=== PATIENT | female | born 1955 | race Caucasian/White ===

== ENCOUNTER → 2017-03-14 | Outpatient (CLI) | payer OTHER ==
[~2017-03-14] MED LIST: AMITRIPTYLINE25 MG PO; BACTRIM DS 8001 TA1 PO; FLEXERIL10 MG PO; PYRIDIUM200 MG PO; WELLBUTRIN SR150 MG PO
== END | disposition home or self-care (01) ==
LOC: LAB 10:57 → MRI 10:57
PROVIDERS: Radiology Diagnostic Radiology
DX: G43.019 Migraine without aura, intractable, without status migrainosus (principal)

== ENCOUNTER → 2017-03-20 | Outpatient (CLI) | payer OTHER ==
[2017-03-20 09:53] LABS: BASO % 0.6 % (0.0-1.0); EOS # 0.2 10*3/uL (0.0-0.4); EOS % 4.4 % (1.0-4.0); HEMOGLOBIN 14.5 g/dl (12.0-16.0); LYMPH # 1.4 10*3/uL (1.3-4.4); LYMPH % 28.5 % (27.0-41.0); MEAN CELL VOLUME 91.7 fl (81.0-99.0); MEAN CORPUSCULAR HGB 31.7 pg (27.0-31.0); MEAN CORPUSCULAR HGB CONC 34.5 g/dl (33.0-37.0); MEAN PLATELET VOLUME 9.6 fl (9.6-12.3); MONO # 0.3 10*3/uL (0.1-1.0); MONO % 7.2 % (3.0-9.0); NEUT # 2.8 10*3/uL (2.3-7.9); NEUT % 58.7 % (47.0-73.0); PLATELET COUNT AUTOMATED 213 10*3/uL (130-400); RED BLOOD COUNT 4.58 10*6/uL (4.10-5.10); RED CELL DISTRI WIDTH 13.3 % (0-14.5); WHITE BLOOD COUNT 4.7 10*3/uL (4.8-10.8)
[2017-03-20 10:15] LABS: ALBUMIN 3.6 gm/dl (3.1-4.5); ALKALINE PHOSPHATASE 63 U/L (45-117); BUN 7 mg/dl (7-24); CHLORIDE 102 mmol/L (98-107); CHOLESTEROL 250 mg/dL (<200); HDL CHOLESTEROL 98 mg/dl (40-60); LDL CHOLESTEROL 133 mg/dL (9-159); SGOT/AST 19 IU/L (3-35); SGPT/ALT 25 U/L (12-78); SODIUM 136 mmol/L (136-145); TRIGLYCERIDES 97 mg/dl (<150); VLDL CHOLESTEROL 19 mg/dL (6-40)
[2017-03-21 07:07] LABS: TOTAL PROTEIN, SERUM 6.5 g/dL (6.0-8.5)
[2017-03-21 15:08] LABS: A/G RATIO 1.3 (0.7-1.7); ALBUMIN 3.7 g/dL (2.9-4.4); ALPHA-1-GLOBULIN 0.3 g/dL (0.0-0.4); ALPHA-2-GLOBULIN 0.8 g/dL (0.4-1.0); BETA GLOBULIN 1.1 g/dL (0.7-1.3); GAMMA GLOBULIN 0.6 g/dL (0.4-1.8); GLOBULIN, TOTAL 2.8 g/dL (2.2-3.9); M-SPIKE Not Observed g/dL (Not Observed)
[2017-03-22 15:08] LABS: METHYLMALONIC ACID 706961 134 nmol/L (0-378)
== END | disposition home or self-care (01) ==
LOC: LAB 09:25
PROVIDERS: Nurse Practitioner Family
DX: E78.4 Other hyperlipidemia (principal); F32.9 Major depressive disorder, single episode, unspecified; G62.9 Polyneuropathy, unspecified

== ENCOUNTER → 2017-08-01 | Day surgery (SDC) | payer OTHER ==
[~2017-08-01] VITALS: Ht 167.6 cm; Wt 74.8 kg
[~2017-08-01] MED LIST changes: +BUPROPION HCL300 MG PO; +CYCLOBENZAPRINE10 MG PO; +CYMBALTA30 MG PO; +ESTRADIOL0.5 MG PO; +OMEPRAZOLE MAGN20 MG PO; +ZYRTEC10 MG PO
--- NOTE | ~2017-08-01 | O ---
[facility], [place] OPERATIVE NOTE NAME: RAISA SANDOVAL UNIT #: [id number] ROOM: DOCTOR: EDDIE DAVISON MD BIRTHDATE: [birth year] DOS: 08/01/2017 GASTROENDOSCOPIC REPORT CHIEF COMPLAINT: A 61-year-old patient who presented with chief complaint concern about colonic screening. ALLERGIES: No medication. FAMILY HISTORY: Ulcerative colitis in father. PAST SURGICAL HISTORY: Appendectomy, hysterectomy, tonsillectomy, TMJ, and cervical spine. PAST MEDICAL HISTORY: Depression, temporomandibular joint arthritis, gastritis. SOCIAL HISTORY: Social alcohol consumer. PROCEDURE: Today's procedure part of investigation is colonoscopy. PREMEDICATION: Versed and Diprivan. SCOPE: Olympus folding colonoscope 10L video. REPORT: After putting the patient in left lateral position and application of lubricant to the scope, the scope was introduced. Thereafter, under direct visualization, advanced through the length of colon with some difficulty. Difficulty was severe angulation and tortuosity of colon, Specifically that she has had total abdominal hysterectomy and adhesions which is fixed hepatic flexure. However, this overcame with appropriate maneuver times taking and base of cecum explored, appendiceal orifice identified. Scope was gradually withdrawn from ascending, transverse, descending colon. The patient extubated, tolerated procedure well. IMPRESSION: Rare diverticulosis and tortuosity of the colon secondary to adhesions and fixation. PLAN AND DISCUSSION: High fiber diet. ACTIVITY: Ad domenico. FOLLOWUP: Routinely with you in office, p.r.n. with us in [facility]. [place], [place] OPERATIVE NOTE NAME: RAISA SANDOVAL UNIT #: [id number] ROOM: DOCTOR: EDDIE DAVISON MD BIRTHDATE: [birth year] EDDIE DAVISON MD CM:OPRECORD:OPERATIVE NOTE [id number] EDDIE DAVISON MD 08/01/17 0921 interface
[2017-08-01 07:20] VITALS: BP 119/71
[2017-08-01 08:55] VITALS: BP 124/78
[2017-08-01 09:06] VITALS: BP 132/69
[2017-08-01 09:21] VITALS: BP 138/66
== END ==
LOC: SDC 07-27 08:45
DX: Z12.11 Encounter for screening for malignant neoplasm of colon (principal); K57.30 Diverticulosis of large intestine without perforation or abscess without bleeding; Z84.89 Family history of other specified conditions; Z90.49 Acquired absence of other specified parts of digestive tract; Z90.710 Acquired absence of both cervix and uterus; F32.9 Major depressive disorder, single episode, unspecified; M19.90 Unspecified osteoarthritis, unspecified site; K63.89 Other specified diseases of intestine; K21.9 Gastro-esophageal reflux disease without esophagitis; Z87.891 Personal history of nicotine dependence; Z79.899 Other long term (current) drug therapy; Z98.890 Other specified postprocedural states

== ENCOUNTER → 2018-11-18 | Outpatient (CLI) | payer OTHER ==
[2018-11-18 12:01] LABS: BASO # 0.1 10*3/uL (0.0-0.1); BASO % 0.9 % (0.0-1.0); EOS # 0.6 10*3/uL (0.0-0.4); EOS % 8.4 % (1.0-4.0); HEMATOCRIT 43.2 % (37.0-47.0); HEMOGLOBIN 14.1 g/dl (12.0-16.0); LYMPH # 1.3 10*3/uL (1.3-4.4); LYMPH % 19.4 % (27.0-41.0); MEAN CELL VOLUME 88.9 fl (81.0-99.0); MEAN CORPUSCULAR HGB CONC 32.6 g/dl (33.0-37.0); MEAN PLATELET VOLUME 9.8 fl (9.6-12.3); MONO # 0.5 10*3/uL (0.1-1.0); MONO % 7.8 % (3.0-9.0); NEUT # 4.2 10*3/uL (2.3-7.9); PLATELET COUNT AUTOMATED 250 10*3/uL (130-400); RED BLOOD COUNT 4.86 10*6/uL (4.10-5.10); RED CELL DISTRI WIDTH 14.3 % (0-14.5); WHITE BLOOD COUNT 6.6 10*3/uL (4.8-10.8)
[2018-11-18 12:34] LABS: ALBUMIN 3.9 gm/dl (3.1-4.5); BUN 11 mg/dl (7-24); CHLORIDE 101 mmol/L (98-107); POTASSIUM 4.2 mmol/L (3.5-5.1); SGPT/ALT 36 U/L (12-78); SODIUM 136 mmol/L (136-145)
[2018-11-18 12:45] LABS: ALKALINE PHOSPHATASE 81 U/L (45-117); CREATININE 0.78 mg/dL (0.55-1.02); SGOT/AST 22 IU/L (3-35); TOTAL PROTEIN 7.6 gm/dL (6.4-8.2)
[2018-11-19 06:16] LABS: TOTAL PROTEIN, SERUM 6.9 g/dL (6.0-8.5)
[2018-11-19 14:07] LABS: A/G RATIO 1.3 (0.7-1.7); ALBUMIN 3.9 g/dL (2.9-4.4); ALPHA-1-GLOBULIN 0.2 g/dL (0.0-0.4); ALPHA-2-GLOBULIN 0.9 g/dL (0.4-1.0); BETA GLOBULIN 1.3 g/dL (0.7-1.3); GAMMA GLOBULIN 0.6 g/dL (0.4-1.8); M-SPIKE Not Observed g/dL (Not Observed)
[2018-11-21 00:07] LABS: METHYLMALONIC ACID 166 nmol/L (0-378)
== END | disposition home or self-care (01) ==
LOC: LAB 11:07
PROVIDERS: Physician Assistant
DX: G62.9 Polyneuropathy, unspecified (principal)

== ENCOUNTER → 2023-03-20 | Outpatient (CLI) | payer MEDICARE | END | disposition home or self-care (01) | LOC: RAD 10:52 | PROVIDERS: ATTEND Chiropractor | DX: M51.36 Other intervertebral disc degeneration, lumbar region (principal); M48.061 Spinal stenosis, lumbar region without neurogenic claudication ==

== ENCOUNTER 2024-02-20 14:08 | Inpatient (IN) | payer MEDICARE ==
[~2024-02-20] VITALS: Ht 165.1 cm; Wt 80.0 kg
[2024-02-20 14:34] VITALS: BP 138/85
[2024-02-20] MEDS ORDERED: Ondansetron Hydrochloride 4 MG/2 ML VIAL IV ONE (14:35)
[2024-02-20] MEDS ORDERED: Ketorolac Tromethamine 30 MG/ML VIAL IV ONE (14:35)
[2024-02-20] MEDS ORDERED: SODIUM CHLORIDE 0.9% 1,000 ML IV ONE ×2 (14:35→18:20)
[2024-02-20] MEDS ORDERED: IOHEXOL 300 MG/ML 100 ML VIAL IV ONE (14:50)
[2024-02-20 14:51] LABS: BASO # 0.1 10*3/uL (0.0-0.1); BASO % 0.4 % (0.0-1.0); EOS # 0.3 10*3/uL (0.0-0.4); EOS % 1.9 % (1.0-4.0); LYMPH # 1.5 10*3/uL (1.3-4.4); MEAN CELL VOLUME 75.7 fl (81.0-99.0); MEAN CORPUSCULAR HGB 24.1 pg (27.0-31.0); MEAN CORPUSCULAR HGB CONC 31.8 g/dl (33.0-37.0); MEAN PLATELET VOLUME 9.5 fl (9.6-12.3); MONO % 6.8 % (3.0-9.0); NEUT # 12.1 10*3/uL (2.3-7.9); NEUT % 80.4 % (47.0-73.0); PLATELET COUNT AUTOMATED 282 10*3/uL (130-400); RED BLOOD COUNT 5.02 10*6/uL (4.10-5.10); RED CELL DISTRI WIDTH 16.1 % (0-14.5); WHITE BLOOD COUNT 15.1 10*3/uL (4.8-10.8)
[2024-02-20 15:04] LABS: BILIRUBIN Negative (Negative); BLOOD Negative (Negative); CLARITY Clear (Clear); COLOR Yellow (Yellow); GLUCOSE Negative (Negative); KETONE Trace (Negative); LEUKO ESTERASE Negative (Negative); NITRITE Negative (Negative); PH 6.5 (4.5-8.0)
[2024-02-20 15:11] LABS: ALKALINE PHOSPHATASE 105 U/L (46-116); BUN 10 mg/dl (9-23); CHLORIDE 101 mmol/L (98-107); LIPASE 32 U/L (12-53); POTASSIUM 3.5 mmol/L (3.4-5.1); SGPT/ALT 15 U/L (5-49); TOTAL PROTEIN 6.8 gm/dL (6.0-8.0)
[2024-02-20 15:20] LABS: MUCOUS TRACE; WBC 0-2 wbc/hpf (0-5)
[2024-02-20] MEDS ORDERED: Ondansetron4 MG PO (16:47)
[2024-02-20] MEDS ORDERED: HYDROCODONE-AC1 EAC1 PO (16:47)
[2024-02-20] MEDS ORDERED: Piperacillin Sodium/Tazobact 50 ML IV ONE (17:15)
[2024-02-20] MEDS ORDERED: ATORVASTATIN CA20 M1 PO (17:48)
[2024-02-20] MEDS ORDERED: BACLOFEN20 M1 PO (17:48)
[2024-02-20] MEDS ORDERED: METFORMIN HYDR500 MG PO (17:49)
[2024-02-20] MEDS ORDERED: BUPROPION XL300 MG PO (17:49)
[2024-02-20] MEDS ORDERED: DULOXETINE HCL60 MG PO (17:49)
[2024-02-20] MEDS ORDERED: OMEPRAZOLE40 MG PO (17:50)
[2024-02-20] MEDS ORDERED: CLONIDINE HCL0.2 MG PO (17:50)
[2024-02-20] MEDS ORDERED: ACETAMINOPHEN 650 MG SUPP R PRN (18:10)
[2024-02-20] MEDS ORDERED: BISACODYL 10 MG SUPP R PRN (18:10)
[2024-02-20] MEDS ORDERED: Ondansetron Hydrochloride 4 MG/2 ML VIAL IV PRN (18:10)
[2024-02-20] MEDS ORDERED: ACETAMINOPHEN 325 MG TAB PO PRN (18:10)
[2024-02-20] MEDS ORDERED: BISACODYL 5 MG TAB PO PRN (18:10)
[2024-02-20] MEDS ORDERED: Magnesium Hydroxide 30 ML UDC PO PRN (18:10)
[2024-02-20] MEDS ORDERED: MORPHINE Sulfate 2 MG/ML SYR IV PRN (18:10)
[2024-02-20] MEDS ORDERED: DEXTROSE 10 % IN WATER 250 ML IV PRN ×2 (18:45→19:05)
[2024-02-20 21:05] VITALS: BP 132/74
[2024-02-20] MEDS ORDERED: INSULIN LISPRO 1 UNIT/0.01 ML SQ SCH ×2 (22:00)
[2024-02-21] VITALS (13 sets, daily range): BP systolic 128–162; BP diastolic 67–91
[2024-02-21] MEDS ORDERED: Piperacillin Sodium/Tazobact 50 ML IV SCH (02:00)
[2024-02-21] MEDS ORDERED: Ketorolac Tromethamine 30 MG/ML VIAL IV ONE (03:45)
[2024-02-21] MEDS ORDERED: fentaNYL CITRATE 100 MCG/2 ML VIAL IV ONE ×3 (04:20→19:27)
[2024-02-21] MEDS ORDERED: Pantoprazole Sodium 40 MG TAB PO SCH (06:00)
[2024-02-21] MEDS ORDERED: Pantoprazole Sodium 40 MG VIAL IV SCH (06:00)
[2024-02-21 06:22] LABS: BASO # 0.1 10*3/uL (0.0-0.1); BASO % 0.4 % (0.0-1.0); EOS # 0.4 10*3/uL (0.0-0.4); EOS % 2.5 % (1.0-4.0); LYMPH # 1.8 10*3/uL (1.3-4.4); LYMPH % 12.7 % (27.0-41.0); MEAN CELL VOLUME 77.2 fl (81.0-99.0); MEAN CORPUSCULAR HGB 23.8 pg (27.0-31.0); MEAN CORPUSCULAR HGB CONC 30.8 g/dl (33.0-37.0); MONO # 1.1 10*3/uL (0.1-1.0); MONO % 7.9 % (3.0-9.0); NEUT # 10.5 10*3/uL (2.3-7.9); NEUT % 76.2 % (47.0-73.0); PLATELET COUNT AUTOMATED 267 10*3/uL (130-400); RED BLOOD COUNT 4.79 10*6/uL (4.10-5.10); RED CELL DISTRI WIDTH 16.5 % (0-14.5); WHITE BLOOD COUNT 13.8 10*3/uL (4.8-10.8)
[2024-02-21 06:57] LABS: BUN 7 mg/dl (9-23); CHLORIDE 102 mmol/L (98-107); CHOLESTEROL 127 mg/dL (<200); LDL CHOLESTEROL 55 mg/dL (9-159); POTASSIUM 3.6 mmol/L (3.4-5.1); TRIGLYCERIDES 58 mg/dl (<150)
[2024-02-21] MEDS ORDERED: SODIUM CHLORIDE 0.9% 1,000 ML IV ONE (08:30)
[2024-02-21] MEDS ORDERED: Lactated Ringer's Solution 1,000 ML IV ONE (17:01)
[2024-02-21] MEDS ORDERED: BUPIVACAINE 0.5% 30 ML IV ONE (17:04)
[2024-02-21] MEDS ORDERED: Iodixanol 320 100 ML VIAL ONE (17:06)
[2024-02-21] MEDS ORDERED: Esmolol Hydrochloride 100 MG/10 ML VIAL IV ONE (19:27)
[2024-02-21] MEDS ORDERED: ROCURONIUM BROMIDE 50 MG/5 ML SYRINGE IV ONE (19:27)
[2024-02-21] MEDS ORDERED: Lidocaine Hydrochloride 5 ML VIAL IV ONE (19:27)
[2024-02-21] MEDS ORDERED: SUGAMMADEX SODIUM 200 MG/2 ML VIAL IV ONE (19:27)
[2024-02-21] MEDS ORDERED: Dexamethasone Sodium Phospha 4 MG/ML VIAL IV ONE (19:27)
[2024-02-21] MEDS ORDERED: Ondansetron Hydrochloride 4 MG/2 ML VIAL IV ONE (19:27)
[2024-02-21] MEDS ORDERED: SEVOFLURANE 250 ML BOT INH ONE (19:27)
[2024-02-21] MEDS ORDERED: Ketamine Hydrochloride 500 MG/10 ML VIAL IV ONE (19:27)
[2024-02-21] MEDS ORDERED: PROPOFOL 200 MG/20 ML VIAL IV ONE (19:27)
[2024-02-22] VITALS: BP 154/89
[2024-02-22 05:57] LABS: BUN 7 mg/dl (9-23); CHLORIDE 103 mmol/L (98-107); POTASSIUM 3.7 mmol/L (3.4-5.1)
[2024-02-22 06:17] LABS: BASO % 0.2 % (0.0-1.0); HEMATOCRIT 37.2 % (37.0-47.0); LYMPH % 8.6 % (27.0-41.0); MEAN CELL VOLUME 77.2 fl (81.0-99.0); MEAN CORPUSCULAR HGB 24.3 pg (27.0-31.0); MEAN CORPUSCULAR HGB CONC 31.5 g/dl (33.0-37.0); MEAN PLATELET VOLUME 10.1 fl (9.6-12.3); MONO # 0.7 10*3/uL (0.1-1.0); NEUT # 9.8 10*3/uL (2.3-7.9); NEUT % 84.6 % (47.0-73.0); PLATELET COUNT AUTOMATED 266 10*3/uL (130-400); RED BLOOD COUNT 4.82 10*6/uL (4.10-5.10); RED CELL DISTRI WIDTH 16.4 % (0-14.5); WHITE BLOOD COUNT 11.5 10*3/uL (4.8-10.8)
[2024-02-22 08:00] VITALS: BP 132/82
[2024-02-22] MEDS ORDERED: Acetaminophen/Hydrocodone ES 7.5/325 tablet PO PRN (09:30)
[2024-02-22] MEDS ORDERED: Duloxetine Hydrochloride 60 MG CAP PO SCH (10:00)
[2024-02-22] MEDS ORDERED: cloNIDine Hydrochloride 0.2 MG TAB PO SCH (10:00)
[2024-02-22] MEDS ORDERED: buPROPion XL 150 MG TAB PO SCH (10:00)
[2024-02-22 12:00] VITALS: BP 118/57
[2024-02-22] MEDS ORDERED: HYDROCODONE-AC1 EAC2 PO (14:44)
[2024-02-22] MEDS ORDERED: ATORVASTATIN CALCIUM 20 MG TAB PO SCH (18:00)
== END 2024-02-22 15:15 | disposition home or self-care (01) | DRG 854 ==
LOC: ED 14:08 → 4E 17:18 → EDHOLD 17:18 → 4E 02-21 01:42
PROVIDERS: Physician Assistant Medical; Student in an Organized Health Care Education/Training Program; ADMIT Internal Medicine; ATTEND Internal Medicine
PROC: 0FT44ZZ Resection of Gallbladder, Percutaneous Endoscopic Approach (ICD-10-PCS; principal; 2024-02-21)
DX: A41.9 Sepsis, unspecified organism (principal); E87.1 Hypo-osmolality and hyponatremia; K80.00 Calculus of gallbladder with acute cholecystitis without obstruction; F33.9 Major depressive disorder, recurrent, unspecified; K21.9 Gastro-esophageal reflux disease without esophagitis; E11.65 Type 2 diabetes mellitus with hyperglycemia; M15.0 Primary generalized (osteo)arthritis; Z90.710 Acquired absence of both cervix and uterus; Z90.49 Acquired absence of other specified parts of digestive tract; Z79.84 Long term (current) use of oral hypoglycemic drugs; Z79.899 Other long term (current) drug therapy; Z82.0 Family history of epilepsy and other diseases of the nervous system